=== PATIENT | female | born 1935 | race Caucasian/White ===

== ENCOUNTER 2017-02-06 16:40 | Inpatient (IN) | payer OTHER, MEDICAID ==
[~2017-02-06] VITALS: Ht 160 cm; Wt 45.8 kg
[~2017-02-06 16:40] MED LIST: AMLO-218; BENA20TA48; CLON-230; CLOP75TA19; GLIP5TAB13; GLYB5TAB3; METF500T4; METO100T13; SIMV20TA2; VALS1TAB61
--- NOTE | 2017-02-06 17:11 | ERA ---
ER Documentation Chief Complaint Date/Time DATE: 02/06/17 TIME: 17:11 Chief Complaint BIB DAUGHTER C/O FEVER THAT STARTED TODAY. HPI The patient is a 81-year-old female, presenting to the ER because of fever, vomiting, decreased appetite, not drinking fluids for 1 day. The history is obtained from the daughter. He denies chest pain, dyspnea, complaints of diffuse abdominal pain. She does not smoke or drink Past medical history: Hypertension, dyslipidemia, diabetes mellitus, chronic kidney disease Past surgical history: Left foot amputation ROS All systems reviewed and are negative except as per history of present illness. Medications Home Meds Reported Medications Spironolactone* (Aldactone*) 25 Mg Tablet, 25 MG PO BID, #60 TAB 02/06/17 Metoprolol Tartrate* (Lopressor*) 25 Mg Tab, 25 MG PO BID, #60 TAB 02/06/17 Irbesartan* (Irbesartan*) 300 Mg Tablet, 300 MG PO DAILY, TAB 02/06/17 Isosorbide Mononitrate* (Isosorbide Mononitrate*) 30 Mg Tab.er.24h, 30 MG PO DAILY, TAB 02/06/17 Aspirin* (Aspirin* EC) 81 Mg Tablet.dr, 81 MG PO DAILY, TAB 02/06/17 Simvastatin* (Zocor*) 40 Mg Tablet, 40 MG PO QHS, #30 TAB 02/06/17 Furosemide* (Furosemide*) 80 Mg Tablet, 80 MG PO BID, #60 TAB 02/06/17 Allopurinol* (Allopurinol*) 100 Mg Tablet, 100 MG PO DAILY, TAB 02/06/17 Nifedipine* (Nifedipine ER*) 60 Mg Tablet.sa, 60 MG PO DAILY, TAB.SA 02/06/17 Discontinued Reported Medications Simvastatin (Simvastatin) 20 Mg Tablet 02/27/10 Benazepril Hcl* (Benazepril Hcl*) 20 Mg Tablet 02/27/10 Glyburide* (Glyburide*) 5 Mg Tablet 02/27/10 Glipizide* (Glipizide*) 5 Mg Tablet 02/27/10 Amlodipine Besylate* (Norvasc*) 10 Mg Tablet 02/27/10 Metformin* (Glucophage*) 500 Mg Tab 10/27/09 Clopidogrel Bisulfate (Plavix) 75 Mg Tablet 10/27/09 Metoprolol Succinate* (Toprol XL*) 100 Mg Tab.sr.24h 10/27/09 Clonidine Hcl (Clonidine Hcl) 0.1 Mg Tablet 10/27/09 Valsartan-Hydrochlorothiazide (Diovan HCT) 1 Tab Tablet 10/27/09 Allergies Allergies: Coded Allergies: No Known Drug Allergies (Verified Allergy, Unknown, 02/06/17) PMhx/Soc History of Surgery: Yes (L ANKLE DISARTICULATION, CATARACT) Anesthesia Reaction: No Hx Neurological Disorder: No Hx Respiratory Disorders: No Hx Cardiac Disorders: No Hx Psychiatric Problems: No Hx Miscellaneous Medical Probl: Yes (HTN, DM) Hx Alcohol Use: No Hx Substance Use: No Hx Tobacco Use: No Smoking Status: Never smoker Physical Exam Vitals Vital Signs Date Time Temp Pulse Resp B/P Pulse Ox O2 Delivery O2 Flow Rate FiO2 02/06/17 20:35 60 18 130/46 98 Room Air 02/06/17 17:32 0 02/06/17 16:41 102.0 89 20 136/59 98 Physical Exam Const: No acute distress. Dehydrated Head: Atraumatic. Eyes: Normal Conjunctiva. ENT: Normal External Ears, Nose and Mouth. Neck: Full range of motion. No meningismus. Resp: Clear to auscultation bilaterally. Cardio: Regular rate and rhythm. Abd: Soft, non distended, normal bowel sounds, diffuse and moderate abdominal tenderness, no rigidity, rebound, CVA tenderness Skin: No petechiae or rashes. Back: No midline or flank tenderness. Ext: No cyanosis, or edema. Neur: Awake and alert. No focal deficit Psych: Normal Mood and Affect. Result Diagram: 02/06/17172902/06/171729 Results 24 hrs Laboratory Tests Test 02/06/17 17:30 02/06/17 17:34 02/06/17 18:08 02/06/17 18:31 White Blood Count 11.710^3/ul Red Blood Count 2.6310^6/ul Hemoglobin 8.0g/dl Hematocrit 24.1% Mean Corpuscular Volume 91.6fl Mean Corpuscular Hemoglobin 30.4pg Mean Corpuscular Hemoglobin Concent 33.2g/dl Red Cell Distribution Width 13.5% Platelet Count 84817^3/UL Mean Platelet Volume 12.0fl Neutrophils % 89.7% Lymphocytes % 2.1% Monocytes % 6.9% Eosinophils % 0.1% Basophils % 0.3% Nucleated Red Blood Cells % 0.0/100WBC Neutrophils # 10.510^3/ul Lymphocytes # 0.210^3/ul Monocytes # 0.810^3/ul Eosinophils # 0.010^3/ul Basophils # 0.010^3/ul Nucleated Red Blood Cells # 0.010^3/ul Prothrombin Time 13.7Sec Prothrombin Time Ratio 1.1 INR International Normalized Ratio 1.05 Activated Partial Thromboplast Time 28.7Sec Sodium Level 132mmol/L Potassium Level 4.9mmol/L Chloride Level 102mmol/L Carbon Dioxide Level 20mmol/L Anion Gap 15 Blood Urea Nitrogen 54mg/dl Creatinine 3.04mg/dl Glucose Level 177mg/dl Calcium Level 8.9mg/dl Total Bilirubin 0.3mg/dl Direct Bilirubin 0.00mg/dl Indirect Bilirubin 0.3mg/dl Aspartate Amino Transf (AST/SGOT) 15IU/L Alanine Aminotransferase (ALT/SGPT) 22IU/L Alkaline Phosphatase 134IU/L Troponin I 0.014ng/ml Total Protein 6.5g/dl Albumin 4.1g/dl Globulin 2.40g/dl Albumin/Globulin Ratio 1.70 Lactic Acid Level 1.5mmol/L Bedside Glucose 184mg/dL Urine Color YELLOW Urine Clarity CLOUDY Urine pH Urine Specific [place] Urine Ketones NEGATIVE Urine Nitrite NEGATIVE Urine Bilirubin NEGATIVE Urine Urobilinogen 0.2 E.U./dL Urine Leukocyte Esterase 2+ Urine Microscopic RBC 5-10/HPF Urine Microscopic WBC >200/HPF Urine Squamous Epithelial Cells FEW/HPF Urine Bacteria MANY/HPF Urine Hemoglobin 2+ Urine Glucose NEGATIVE% Urine Total Protein TRACE Current Medications Medications (Trade) Dose Ordered Sig/Mitch Route PRN Reason Start Time Stop Time Status Last Admin Dose Admin Acetaminophen 650 mg 650 mg ONCE ONCE PO 02/06/17 17:30 02/06/17 17:31 DC 02/06/17 18:09 Ceftriaxone Sodium (Rocephin) 50 ml @ 100 mls/hr ONCE ONCE IVPB 02/06/17 19:30 02/06/17 19:59 DC 02/06/17 19:50 Procedures/MDM [place] [id number] Radiology Main Line: [phone] DIAGNOSTIC IMAGING REPORT Patient: CHRYSTAL HANNON : 1935 Age: 81 Sex: F MR #: [id number] DOS: 02/06/171710 Ordering MD: SONG KWOK MD Location: E/R Room/Bed: PROCEDURE: XR Chest. CLINICAL INDICATION: Shortness of breath. TECHNIQUE: Single frontal view. COMPARISON: 03/04/2010. FINDINGS: The lungs are clear. The heart size is normal. There is calcification in the aorta consistent with atherosclerosis. There is no pleural effusion. There is no pneumothorax. IMPRESSION: 1. Atherosclerosis. 2. Clear lungs. RPTAT: QQ .Nima Nguyễn MD, Date Time Electronically viewed and signed by .Nima Nguyễn MD, MD on 02/06/2017 18:33 .R/ CC: SONG KWOK MD [place] [id number] Radiology Main Line: [phone] DIAGNOSTIC IMAGING REPORT Patient: CHRYSTAL HANNON : 1935 Age: 81 Sex: F MR #: [id number] DOS: 02/06/171710 Ordering MD: SONG KWOK MD Location: E/R Room/Bed: PROCEDURE: CT Abdomen and Pelvis without contrast. CLINICAL INDICATION: Sepsis TECHNIQUE: CT scan of the abdomen and pelvis was performed on a multidetector slice CT scanner. No intravenous contrast material was utilized. Sagittal and coronal reformatted images were obtained from the axial source images. Images were reviewed on a high-resolution PACS workstation. Exam CTDlvol = 9.5 mGy and DLP = 489 Gy-cm. One of the following 3 dose reduction techniques were used: Automated exposure control; adjustment of the mA and/or kV according to patient size; or use of iterative reconstruction technique. COMPARISON: None. FINDINGS: There is no obstruction or ileus. The appendix is well visualized and normal in size. There are few sigmoid colon diverticuli without evidence for diverticulitis. There is no free fluid. There are left inguinal surgical clips. The liver is overall normal in size. There are multiple punctate and peripherally calcified intrahepatic masses, largest in the posterior segment right lobe 1.7 cm diameter. There are numerous noncalcified hypodense lesions throughout the liver, largest in the left lobe of 1.2 cm in diameter. There is gallbladder wall calcification versus large rounded calcified gallstones up to 3.2 cm in diameter. Gallbladder is otherwise unremarkable.. There is no definite biliary ductal dilation. Pancreas is normal in appearance. The spleen is unremarkable.. There are no adrenal masses. The aorta is normal caliber. There are diffuse vascular calcifications. There is 1.6 cm probable cyst lower pole of the right kidney. Kidneys are otherwise normal in appearance without hydronephrosis, mass or obstructing calculus. There is no perinephric collection. Ureters are of normal caliber and without evidence for an obstructing calculus. The urinary bladder is partially contracted with diffuse wall thickening... Multiple uterine probable vascular calcifications are present. Ovaries are not well characterized. Limited evaluation of the lung bases demonstrates an 8 mm noncalcified nodular density left lung base with adjacent atelectasis or scarring.. There are degenerative changes of the lower lumbar spine.. IMPRESSION: 1. Innumerable calcified and noncalcified intrahepatic lesions. Larger calcified lesions are peripherally calcified. Considerations include neoplasm versus infection includingHydatid cysts. 2. Marked peripherally calcified gallstone versus calcified gallbladder wall. 3. No evidence for biliary obstruction. 4. Extensive diffuse vascular calcifications. 5. Few sigmoid colon diverticuli without evidence for diverticulitis. 6. Probable right renal cyst. No obstructive uropathy. Partially contracted gallbladder with nonspecific wall thickening. 7. Noncalcified left lower lobe lung nodule and adjacent atelectasis. 8. Degenerative changes of the lumbar spine. RPTAT: HMVK .Song Driscoll MD, Date Time Electronically viewed and signed by .Song Driscoll MD, on 02/06/2017 18:42 .K/ CC: SONG KWOK MD MEDICAL MAKING DECISION: The patient is of 80-year-old female, presenting with acute dehydration, acute cystitis and acute hepatic lesion of unclear etiology. She was treated 500 ml normal saline and Rocephin IV for acute cystitis and Tylenol for fever with good response The differential diagnoses considered include but are not limited to cholelithiasis, cholecystitis, cystitis, pancreatitis, hepatitis, gastritis, peptic ulcer disease, gastric ulcer, appendicitis, diverticulitis, cholangitis, choledocholithiasis, partial small bowel obstruction, malignancy. Departure Diagnosis: Primary Impression: UTI (urinary tract infection) Additional Impressions: Dehydration Hepatic lesion Anemia Condition: Stable Comments I discussed the findings with the patient. I discussed the patient with the on- call hospitalist Dr. Ware at 7 PM who was made aware of the lab, the treatment, the patient condition. The patient is admitted to [facility] SONG KWOK MD Feb 06, 2017 17:11
[2017-02-06] MEDS ORDERED: ACETAMINOPHEN 325 MG TAB PO ONE (17:30)
[2017-02-06] MEDS ORDERED: NIFE60TA7 PO (17:43)
[2017-02-06] MEDS ORDERED: ALLO100T PO (17:44)
[2017-02-06] MEDS ORDERED: FURO80TA3 PO (17:44)
[2017-02-06] MEDS ORDERED: SIMV40TA2 PO (17:45)
[2017-02-06] MEDS ORDERED: ASPI-664 PO (17:45)
[2017-02-06] MEDS ORDERED: ISOS30TA5 PO (17:45)
[2017-02-06] MEDS ORDERED: METO-448 PO (17:46)
[2017-02-06] MEDS ORDERED: IRBE300T15 PO (17:46)
[2017-02-06] MEDS ORDERED: SPIR25TA PO (17:48)
[2017-02-06 17:57] LABS: ADD SCAN DIFF NO
[2017-02-06 18:01] LABS: ABNORMAL IP MESSAGE 1; BASOPHILS % 0.3 % (0.0-2.0); EOSINOPHILS % 0.1 % (0.0-7.0); HEMATOCRIT 24.1 % (37.0-47.0); LYMPHOCYTES # 0.2 10^3/ul (0.8-2.9); LYMPHOCYTES % 2.1 % (15.0-51.0); MEAN CORPUSCULAR HEMOGLOBIN 30.4 pg (29.0-33.0); MEAN CORPUSCULAR HGB CONC 33.2 g/dl (32.0-37.0); MEAN CORPUSCULAR VOLUME 91.6 fl (82.0-101.0); MONOCYTE # 0.8 10^3/ul (0.3-0.9); MONOCYTES % 6.9 % (0.0-11.0); NEUTROPHIL # 10.5 10^3/ul (1.6-7.5); NEUTROPHILS % 89.7 % (39.0-77.0); PLATELET COUNT 153 10^3/UL (140-415); RED BLOOD COUNT 2.63 10^6/ul (4.20-5.40); RED CELL DISTRIBUTION WIDTH 13.5 % (11.5-14.5); WHITE BLOOD COUNT 11.7 10^3/ul (4.8-10.8)
[2017-02-06 18:12] LABS: INR 1.05; PROTIME 13.7 Sec (12.2-14.2); PT RATIO 1.1
[2017-02-06 18:13] LABS: PARTIAL THROMBOPLASTIN TIME 28.7 Sec (25.0-35.0)
[2017-02-06 18:26] LABS: ALBUMIN 4.1 g/dl (3.3-4.9); ALBUMIN/GLOBULIN RATIO 1.7; BILIRUBIN,INDIRECT 0.3 mg/dl (0-1.1); BILIRUBIN,TOTAL 0.3 mg/dl (0.2-1.3); CALCIUM 8.9 mg/dl (8.4-10.2); CREATININE 3.04 mg/dl (0.44-1.00); POTASSIUM 4.9 mmol/L (3.5-5.1); TOTAL PROTEIN 6.5 g/dl (6.1-8.1)
--- NOTE | 2017-02-06 18:33 | RADRPT ---
PROCEDURE: XR Chest. CLINICAL INDICATION: Shortness of breath. TECHNIQUE: Single frontal view. COMPARISON: 03/04/2010. FINDINGS: The lungs are clear. The heart size is normal. There is calcification in the aorta consistent with atherosclerosis. There is no pleural effusion. There is no pneumothorax. IMPRESSION: 1. Atherosclerosis. 2. Clear lungs. RPTAT: QQ .Nima Nguyễn MD, MD Date Time Electronically viewed and signed by .Nima Nguyễn MD, on 02/06/2017 18:33 .R/
[2017-02-06 18:36] LABS: TROPONIN-I 0.014 ng/ml (0.00-0.12)
--- NOTE | 2017-02-06 18:43 | RADRPT ---
PROCEDURE: CT Abdomen and Pelvis without contrast. CLINICAL INDICATION: Sepsis TECHNIQUE: CT scan of the abdomen and pelvis was performed on a multidetector slice CT scanner. No intravenous contrast material was utilized. Sagittal and coronal reformatted images were obtained fr om the axial source images. Images were reviewed on a high-resolution PACS workstation. Exam CTDlvol = 9.5 mGy and DLP = 489 Gy-cm. One of the following 3 dose reduction techniques were used: Automate d exposure control; adjustment of the mA and/or kV according to patient size; or use of iterative re construction technique. COMPARISON: None. FINDINGS: There is no obstruction or ileus. The appendix is well visualized and normal in size. There are few sigmoid colon diverticuli without evidence for diverticulitis. There is no free fluid. There are le ft inguinal surgical clips. The liver is overall normal in size. There are multiple punctate and peripherally calcified intrahep atic masses, largest in the posterior segment right lobe 1.7 cm diameter. There are numerous noncal cified hypodense lesions throughout the liver, largest in the left lobe of 1.2 cm in diameter. Ther e is gallbladder wall calcification versus large rounded calcified gallstones up to 3.2 cm in diamet er. Gallbladder is otherwise unremarkable.. There is no definite biliary ductal dilation. Pancreas is normal in appearance. The spleen is unremarkable.. There are no adrenal masses. The aorta is norm al caliber. There are diffuse vascular calcifications. There is 1.6 cm probable cyst lower pole of the right kidney. Kidneys are otherwise normal in appea jero without hydronephrosis, mass or obstructing calculus. There is no perinephric collection. Uret ers are of normal caliber and without evidence for an obstructing calculus. The urinary bladder is partially contracted with diffuse wall thickening... Multiple uterine probable vascular calcifications are present. Ovaries are not well characterized. Limited evaluation of the lung bases demonstrates an 8 mm noncalcified nodular density left lung bas e with adjacent atelectasis or scarring.. There are degenerative changes of the lower lumbar spine.. IMPRESSION: 1. Innumerable calcified and noncalcified intrahepatic lesions. Larger calcified lesions are perip herally calcified. Considerations include neoplasm versus infection includingHydatid cysts. 2. Marked peripherally calcified gallstone versus calcified gallbladder wall. 3. No evidence for biliary obstruction. 4. Extensive diffuse vascular calcifications. 5. Few sigmoid colon diverticuli without evidence for diverticulitis. 6. Probable right renal cyst. No obstructive uropathy. Partially contracted gallbladder with nons pecific wall thickening. 7. Noncalcified left lower lobe lung nodule and adjacent atelectasis. 8. Degenerative changes of the lumbar spine. RPTAT: HMVK .Song Driscoll MD, Date Time Electronically viewed and signed by .Song Driscoll MD, on 02/06/2017 18:42 .K/
[2017-02-06 18:49] LABS: ADD UMIC YES; UR BILIRUBIN (Dip) NEGATIVE (NEGATIVE); UR BLOOD (Dip) 2+ (NEGATIVE); UR CLARITY CLOUDY (CLEAR); UR COLOR YELLOW (YELLOW); UR GLUCOSE (Dip) NEGATIVE (NEGATIVE); UR KETONES (Dip) NEGATIVE (NEGATIVE); UR LEUKOCYTE ESTERASE (Dip) 2+ (NEGATIVE); UR NITRITE (Dip) NEGATIVE (NEGATIVE); UR TOTAL PROTEIN (Dip) TRACE (NEGATIVE); UR UROBILINOGEN (Dip) 0.2 E.U./dL (0.1-1.0)
[2017-02-06 19:05] LABS: UR BACTERIA MANY /HPF (NONE SEEN); UR SQUAMOUS EPITHELIAL CELL FEW /HPF (FEW)
[2017-02-06] MEDS ORDERED: CEFTRIAXONE 1 GM/50 ML (PMX) 50 ML IVPB ONE (19:30)
[2017-02-06] MEDS ORDERED: SOD CHLORIDE 0.9% 500 ML IV ONE (21:00)
[2017-02-06 22:35] VITALS: BP 129/63; RESP 18
[2017-02-06 22:40] VITALS: Ht 160 cm; Wt 45.8 kg
[2017-02-07] MEDS ORDERED: ACETAMINOPHEN 325 MG TAB PO PRN (01:00)
[2017-02-07] MEDS ORDERED: NACL 0.9% 3 ML SYG IV SCH (01:00)
[2017-02-07] MEDS ORDERED: morphine 2 MG INJ IV PRN (01:00)
[2017-02-07] MEDS ORDERED: HYDROCODONE/APAP (5/325) TAB PO PRN (01:00)
[2017-02-07] MEDS ORDERED: DOCUSATE SODIUM 100 MG CAP PO PRN (01:00)
[2017-02-07] MEDS ORDERED: ZOLPIDEM 5 MG TAB PO PRN (01:00)
[2017-02-07] MEDS ORDERED: ONDANSETRON 4 MG INJ IV PRN (01:00)
[2017-02-07] MEDS ORDERED: GLUCAGON 1 MG INJ IM PRN (01:15)
[2017-02-07] MEDS ORDERED: GLUCOSE GEL 15 GRAM TUBE PO PRN ×2 (01:15)
[2017-02-07] MEDS ORDERED: DEXTROSE 50% 50 ML SYRINGE IV PRN ×2 (01:15)
[2017-02-07] MEDS ORDERED: GLUCOSE GEL 15 GRAM TUBE BUCCAL PRN (01:15)
[2017-02-07] MEDS: ACCU-CHEK XX SCH (02:00)
[2017-02-07] MEDS: SOD CHLORIDE 0.9% 1,000 ML IV SCH ×4 (02:40→22:00)
--- NOTE | 2017-02-07 03:23 | HP ---
DATE OF ADMISSION: 02/06/2017 TIME: 11:45 p.m. CHIEF COMPLAINT: Confusion, weakness, nausea, vomiting. HISTORY OF PRESENT ILLNESS: The patient is an 81-year-old female with a history of hypertension, dy slipidemia, diabetes, CKD as well as left foot amputation. The patient presents with fever, vomitin g, decreased appetite, not drinking fluids for a day, vomiting only occurred today. History is obta ined from daughter. According to granddaughter, the patient has no history of dementia. The patien t is not very conversational. The patient denies any dysuria, any urinary frequency. In the ED, th e patient's UA was positive for UTI. PAST MEDICAL HISTORY: As per HPI. MEDICATIONS: 1. Aldactone 2. Metoprolol. 3. Imdur. 4. Aspirin. 5. Simvastatin. 6. Furosemide. 7. Allopurinol. 8. Nifedipine. ALLERGIES: NO KNOWN DRUG ALLERGIES. FAMILY HISTORY: Noncontributory. SOCIAL HISTORY: Denies any alcohol, tobacco or drugs. REVIEW OF SYSTEMS: Twelve point review of systems difficult to obtain as the patient has poor menta tion. PHYSICAL EXAMINATION: VITAL SIGNS: Temperature is 97.9, pulse 58, respiration is 18, BP is 129/63, saturation 99% on room air. GENERAL: No acute distress, alert, but does not appear oriented. HEENT: Normocephalic, atraumatic. CHEST: Clear to auscultation. CARDIOVASCULAR: Regular rate and rhythm. ABDOMEN: Nondistended, nontender, soft. EXTREMITIES: No clubbing, cyanosis, or edema. Left foot amputation appreciated. LABORATORY DATA: White count is 11.7, hemoglobin is 8.0, platelets are 153. Chemistry: Sodium is 132, potassium is 4.9, carbon dioxide is 20, BUN is 54, creatinine is 3.04, lactic acid is 1.5, bonnie line phosphatase is 134. INR is normal at 1.0. UA is positive for leukocyte esterase 2+, WBCs grea ter than 200. DIAGNOSTICS: Chest x-ray shows atherosclerosis, clear lungs. Abdominal pelvis CT shows intrahepati c lesions, calcified gallstone versus calcified gallbladder wall, no evidence of biliary obstruction , extensive diffuse vascular calcifications, right renal cyst, degenerative changes of the spine. ASSESSMENT AND PLAN: 1. Sepsis with acute encephalopathy secondary to urinary tract infection, treated with Rocephin IV, will check a urine culture. 2. Numerable calcified intrahepatic lesions and this could be ____, will check an AFP. 3. Hypertension. Will continue home medications. 4. Diabetes. Continue home insulin. 5. Acute on chronic kidney disease. The patient's creatinine is elevated compared to baseline, lik kristin secondary to sepsis, will treat with IV fluids. Consider nephrology consultation. 6. Hyponatremia likely secondary to dehydration from nausea and vomiting, will treat with IV fluids . 8. Prophylaxis. SCDs. Dictated By: DONALD WOMACK MD BS/NTS Conf#: [id number] DID#: [id number]
[2017-02-07 06:19] LABS: ADD SCAN DIFF NO
[2017-02-07 06:27] LABS: BASOPHILS % 0.3 % (0.0-2.0); EOSINOPHILS % 0.3 % (0.0-7.0); HEMATOCRIT 26.2 % (37.0-47.0); HEMOGLOBIN 8.3 g/dl (12.0-16.0); LYMPHOCYTES # 0.9 10^3/ul (0.8-2.9); LYMPHOCYTES % 7.1 % (15.0-51.0); MEAN CORPUSCULAR HEMOGLOBIN 29.5 pg (29.0-33.0); MEAN CORPUSCULAR HGB CONC 31.7 g/dl (32.0-37.0); MEAN CORPUSCULAR VOLUME 93.2 fl (82.0-101.0); MEAN PLATELET VOLUME 12.7 fl (7.4-10.4); MONOCYTE # 0.5 10^3/ul (0.3-0.9); MONOCYTES % 4.4 % (0.0-11.0); NEUTROPHIL # 10.5 10^3/ul (1.6-7.5); NEUTROPHILS % 87.3 % (39.0-77.0); PLATELET COUNT 163 10^3/UL (140-415); RED BLOOD COUNT 2.81 10^6/ul (4.20-5.40); RED CELL DISTRIBUTION WIDTH 13.4 % (11.5-14.5)
[2017-02-07 06:57] LABS: CALCIUM 9.1 mg/dl (8.4-10.2); CREATININE 2.65 mg/dl (0.44-1.00); MAGNESIUM 2.1 mg/dl (1.7-2.5); POTASSIUM 4.6 mmol/L (3.5-5.1)
[2017-02-07 08:00] VITALS: BP 190/78; RESP 18
[2017-02-07] MEDS: INSULIN ASPART [NOVOLOG] 3 ML PEN SC SCH ×4 (08:00→20:19)
[2017-02-07 09:30] VITALS: BP 160/70
[2017-02-07] MEDS: ASPIRIN (EC) 81 MG TAB PO SCH (09:37)
[2017-02-07] MEDS: MEGESTROL (40 MG/ML) 10ML CUP PO SCH (20:13)
[2017-02-07] MEDS: CEFTRIAXONE 1 GM/50 ML (PMX) 50 ML IVPB SCH (20:13)
[2017-02-07 22:11] VITALS: BP 157/67
[2017-02-07 22:49] VITALS: BP 157/68; RESP 16
[2017-02-08] VITALS (9 sets, daily range): BP systolic 121–207; BP diastolic 69–87; PULSE 59–84; RESP 16–18
[2017-02-08] MEDS: ACCU-CHEK XX SCH (02:00)
[2017-02-08] MEDS: SOD CHLORIDE 0.9% 1,000 ML IV SCH ×2 (05:47→17:22)
[2017-02-08] MEDS: hydrALAzine 20 MG INJ IV PRN ×2 (05:54→20:22)
[2017-02-08] MEDS: INSULIN ASPART [NOVOLOG] 3 ML PEN SC SCH ×4 (08:00→21:00)
[2017-02-08] MEDS: ASPIRIN (EC) 81 MG TAB PO SCH (08:09)
[2017-02-08] MEDS: MEGESTROL (40 MG/ML) 10ML CUP PO SCH ×2 (08:09→20:21)
--- NOTE | 2017-02-08 15:19 | PN ---
DATE: 02/08/2017 SUBJECTIVE: This is an internal medicine progress note, chart reviewed. The patient currently ledy marcelino in bed comfortable. Mental status is now back to normal. She is on room air saturating 96%. PHYSICAL EXAMINATION: VITAL SIGNS: Blood pressure 150/72, pulse 84, respiration 18, temperature 98.6. HEENT: Pupils are equal and reactive to light. Anicteric sclerae. NECK: Supple, no JVD noted, no cervical adenopathy, no carotid bruits heard. LUNGS: Fair breath sounds bilaterally. CARDIOVASCULAR: S1, S2 normal. ABDOMEN: Soft, nontender. No organomegaly or masses noted. EXTREMITIES: No clubbing, cyanosis, or edema noted. NEUROLOGICAL: Awake. LABORATORY DATA: No new labs today. IMPRESSION: 1. Sepsis. 2. Urinary tract infection. Urine culture now positive for Escherichia coli sensitive to all antib iotics. 3. Acute encephalopathy, likely secondary to sepsis, but now resolved. 4. Diabetes mellitus. 5. Hypertension. 6. Acute on chronic kidney disease. 7. Mild hyponatremia. RECOMMENDATIONS: 1. Continue IV antibiotics. 2. Follow up labs tomorrow. 3. If patient is stable, the patient can be discharged on oral antibiotics home tomorrow under care of her daughter. I discussed the above plans with family at bedside. Dictated By: YANDY LEWIS MD, MA/JOAQUINA Conf#: [id number] DID#: [id number]
[2017-02-08] MEDS: CEFTRIAXONE 1 GM/50 ML (PMX) 50 ML IVPB SCH (19:50)
[2017-02-09] MEDS: ACCU-CHEK XX SCH (02:00)
[2017-02-09] MEDS: SOD CHLORIDE 0.9% 1,000 ML IV SCH ×3 (02:56→22:03)
[2017-02-09] MEDS: hydrALAzine 20 MG INJ IV PRN (05:07)
[2017-02-09 06:22] VITALS: BP 168/72; PULSE 62
[2017-02-09 06:56] LABS: ADD SCAN DIFF NO
[2017-02-09 07:07] LABS: BASOPHILS % 0.3 % (0.0-2.0); EOSINOPHILS # 0.2 10^3/ul (0.0-0.5); HEMATOCRIT 24.7 % (37.0-47.0); HEMOGLOBIN 7.7 g/dl (12.0-16.0); LYMPHOCYTES # 1.2 10^3/ul (0.8-2.9); LYMPHOCYTES % 15.7 % (15.0-51.0); MEAN CORPUSCULAR HEMOGLOBIN 29.4 pg (29.0-33.0); MEAN CORPUSCULAR HGB CONC 31.2 g/dl (32.0-37.0); MEAN CORPUSCULAR VOLUME 94.3 fl (82.0-101.0); MEAN PLATELET VOLUME 12.6 fl (7.4-10.4); MONOCYTE # 0.7 10^3/ul (0.3-0.9); MONOCYTES % 8.8 % (0.0-11.0); NEUTROPHIL # 5.5 10^3/ul (1.6-7.5); NEUTROPHILS % 72.4 % (39.0-77.0); PLATELET COUNT 175 10^3/UL (140-415); RED BLOOD COUNT 2.62 10^6/ul (4.20-5.40); RED CELL DISTRIBUTION WIDTH 13.9 % (11.5-14.5); WHITE BLOOD COUNT 7.5 10^3/ul (4.8-10.8)
[2017-02-09] MEDS: FUROSEMIDE 40 MG TAB PO SCH ×2 (07:10→17:35)
[2017-02-09 07:38] LABS: CALCIUM 7.9 mg/dl (8.4-10.2); CREATININE 1.44 mg/dl (0.44-1.00); POTASSIUM 4.1 mmol/L (3.5-5.1)
[2017-02-09 08:00] VITALS: BP 162/74; RESP 18
[2017-02-09] MEDS: INSULIN ASPART [NOVOLOG] 3 ML PEN SC SCH ×4 (08:00→20:59)
[2017-02-09] MEDS ORDERED: NIFEdipine (XL) 60 MG TAB PO SCH (09:00)
[2017-02-09] MEDS ORDERED: ISOSORBIDE MONONITRATE(SR)30 MG TAB PO SCH (09:00)
[2017-02-09] MEDS: ALLOPURINOL 100 MG TAB PO SCH (10:15)
[2017-02-09] MEDS: LOSARTAN 50 MG TAB PO SCH (10:15)
[2017-02-09] MEDS: METOPROLOL 25 MG TAB PO SCH ×2 (10:16→20:56)
[2017-02-09] MEDS: ASPIRIN (EC) 81 MG TAB PO SCH (10:16)
[2017-02-09] MEDS: SPIRONOLACTONE 25 MG TAB PO SCH ×2 (10:16→20:56)
[2017-02-09] MEDS: MEGESTROL (40 MG/ML) 10ML CUP PO SCH ×2 (10:16→20:56)
--- NOTE | 2017-02-09 14:26 | PN ---
DATE: 02/09/2017 INTERNAL MEDICINE FOLLOWUP SUBJECTIVE: Chart reviewed. The patient does not appear in acute distress, saturating 96%. PHYSICAL EXAMINATION: VITAL SIGNS: Blood pressure 162/74, pulse 62, respirations 18, temperature 98.6. HEENT: Pupils are equal and reactive to light. NECK: Supple. No JVD noted, no cervical adenopathy noted, no carotid bruits heard. LUNGS: Fair breath sounds bilaterally. CARDIOVASCULAR: S1, S2 normal. ABDOMEN: Soft, nontender. No organomegaly or masses noted. EXTREMITIES: No clubbing or cyanosis noted. NEUROLOGICAL: Awake. LABORATORY: Sodium 141, potassium 4.1, chloride 117, CO2 19, BUN 26, creatinine 1.44, glucose 69. WBC 7.5, hemoglobin 7.7, hematocrit 24.7, platelets 175. IMPRESSION: 1. Sepsis. 2. Urinary tract infection. 3. Acute encephalopathy. Resolved. 4. Diabetes mellitus. 5. Hypertension. 6. Acute renal failure on chronic kidney disease. Significantly improved. PLAN: 1. Continue antibiotics. 2. Follow up labs tomorrow. If the patient's creatinine is back to baseline, the patient can be di scharged home on oral antibiotics. Dictated By: YANDY LEWIS MD, MA/JOAQUINA Conf#: [id number] DID#: [id number]
[2017-02-09 20:00] VITALS: BP 114/54; RESP 20
[2017-02-09] MEDS: ATORVASTATIN 20 MG TAB PO SCH (20:56)
[2017-02-09] MEDS: CEFTRIAXONE 1 GM/50 ML (PMX) 50 ML IVPB SCH (20:56)
[2017-02-10] MEDS: ACCU-CHEK XX SCH (02:00)
[2017-02-10] MEDS: FUROSEMIDE 40 MG TAB PO SCH (05:42)
[2017-02-10 06:07] LABS: ADD SCAN DIFF NO
[2017-02-10 06:42] LABS: ALBUMIN 2.4 g/dl (3.3-4.9); ALBUMIN/GLOBULIN RATIO 1.04; CALCIUM 7.9 mg/dl (8.4-10.2); CREATININE 1.75 mg/dl (0.44-1.00); TOTAL PROTEIN 4.7 g/dl (6.1-8.1)
[2017-02-10 08:00] VITALS: BP 123/56; PULSE 60; RESP 16
[2017-02-10] MEDS: INSULIN ASPART [NOVOLOG] 3 ML PEN SC SCH ×4 (08:00→21:22)
[2017-02-10] MEDS: SOD CHLORIDE 0.9% 1,000 ML IV SCH ×3 (08:16→22:16)
[2017-02-10] MEDS ORDERED: LACTATED RINGER'S 500 ML IV ONE (09:00)
--- NOTE | 2017-02-10 09:08 | PN ---
Date/Time of Note Date/Time of Note DATE: 02/10/17 TIME: 09:03 Assessment/Plan VTE Prophylaxis VTE Prophylaxis Intervention: heparin Lines/Catheters IV Catheter Type (from [facility]): Peripheral IV Urinary Cath still in place: No Assessment/Plan Problems: (1) Chronic kidney disease, stage II (mild) Status: Chronic Comment: Patient's renal function has were not returned to baseline. She is already on an H2 receptor hans drug and beta-blockade. I believe she is actually somewhat over diuresed. This is to compensate for the fluid retention effects of the nifedipine. Will adjust the regimen around (2) Status post amputation of left foot Status: Chronic Comment: Noted no action necessary (3) E. coli UTI Status: Acute Comment: On appropriate antibiotics. Probable able to best discharge tomorrow (4) Sepsis due to Escherichia coli (E. coli) Status: Resolved Comment: Patient symptoms sepsis symptoms resolved. Patient is on appropriate antibiotics and improving steadily and nicely. (5) Acute kidney injury (nontraumatic) Status: Acute Comment: This was dehydrational in the setting of sepsis. She is improving nicely. Will adjust medications to try and optimize. (6) Essential hypertension Status: Chronic Comment: Nifedipine is a poor choice in a diabetic in the setting we will replace it. (7) Diabetes mellitus type 2 in nonobese Status: Chronic Comment: Adequate sugar control at this time (8) Hyperlipidemia associated with type 2 diabetes mellitus Status: Chronic Comment: Continue statin therapy (9) Hyperuricemia Status: Chronic Comment: Continue treatment with allopurinol Subjective 24 Hr Interval Summary Free Text/Dictation Elderly female conversant sitting in bed eating breakfast Constitutional: no complaints Respiratory: no complaints Cardiovascular: no complaints Gastrointestinal: no complaints Genitourinary: no complaints Exam/Review of Systems Vital Signs Vitals Vital Signs Date Time Temp Pulse Resp B/P Pulse Ox O2 Delivery O2 Flow Rate FiO2 02/09/17 20:00 98.1 64 20 114/54 95 02/06/17 22:12 Room Air 02/06/17 17:32 0 Intake and Output 02/09/17 02/09/17 02/10/17 15:00 23:00 07:00 Intake Total 1800 ml 570 ml Balance 1800 ml 570 ml Exam Constitutional: alert, oriented Neck: non-tender, supple Respiratory: clear to auscultation, normal air movement Cardiovascular: nl pulses, regular rate and rhythm Gastrointestinal: nl liver, spleen, non-tender, soft Extremities: other (No clubbing cyanosis or edema of the right lower extremity) Results Result Diagram: 02/09/1752002/10/17526 Results 24 hrs Laboratory Tests Test 02/09/17 12:05 02/09/17 17:30 02/09/17 20:58 02/10/17 05:27 Bedside Glucose 108 136 153 Sodium Level 142 Potassium Level 4.0 Chloride Level 117 H Carbon Dioxide Level 17 L Anion Gap 12 Blood Urea Nitrogen 26 H Creatinine 1.75 H Glucose Level 93 Calcium Level 7.9 L Total Bilirubin 0.0 L Direct Bilirubin 0.00 Indirect Bilirubin 0.0 Aspartate Amino Transf (AST/SGOT) 10 L Alanine Aminotransferase (ALT/SGPT) 16 Alkaline Phosphatase 90 Total Protein 4.7 L Albumin 2.4 L Globulin 2.30 Albumin/Globulin Ratio 1.04 Test 02/10/17 07:53 Bedside Glucose 82 Medications Medications Current Medications Sodium Chloride (NS) 1,000 ml @ 100 mls/hr Q10H IV Last administered on 08:16; Admin Dose 100 MLS/HR; Start 02/07/17 at 00:56 Ondansetron HCl (Zofran Inj) 4 mg Q6H PRN IV NAUSEA AND/OR VOMITING; Start at 01:00 Acetaminophen (Tylenol Tab) 650 mg Q6H PRN PO PAIN LEVEL 1-3 OR FEVER; Start at 01:00 Acetaminophen/ Hydrocodone Bitart ([place] (5/325)) 1 tab Q6H PRN PO MODERATE PAIN LEVEL 4-6; Start 02/07/17 at 01:00 Morphine Sulfate (morphine) 2 mg Q4H PRN IV SEVERE PAIN LEVEL 7-10 Last administered on 02/07/17 02:47; Admin Dose 2 MG; Start 02/07/17 at 01:00 Docusate Sodium (Colace) 100 mg Q12H PRN PO CONSTIPATION; Start 02/07/17 at 01: 00 Zolpidem Tartrate 5 mg 5 mg QHS PRN PO SLEEP Last administered on 02/08/17 21: 54; Admin Dose 5 MG; Start 02/07/17 at 01:00 Ceftriaxone Sodium (Rocephin) 50 ml @ 100 mls/hr Q24H IVPB Last administered on 02/09/17 20:56; Admin Dose 100 MLS/HR; Start 02/07/17 at 20:00 Aspirin (Halfprin) 81 mg DAILY PO Last administered on 02/09/17 10:16; Admin Dose 81 MG; Start 02/07/17 at 09:00 Diagnostic Test (Pha) (Accu-Chek) 1 ea 02 XX ; Start 02/07/17 at 02:00 Miscellaneous Information 1 ea NOTE XX ; Start 02/07/17 at 01:15 Glucose (Glutose) 15 gm Q15M PRN PO DECREASED GLUCOSE; Start 02/07/17 at 01:15 Glucose (Glutose) 22.5 gm Q15M PRN PO DECREASED GLUCOSE; Start 02/07/17 at 01: 15 Dextrose (D50w Syringe) 25 ml Q15M PRN IV DECREASED GLUCOSE; Start 02/07/17 at 01:15 Dextrose (D50w Syringe) 50 ml Q15M PRN IV DECREASED GLUCOSE; Start 02/07/17 at 01:15 Glucagon (Glucagen) 1 mg Q15M PRN IM DECREASED GLUCOSE; Start 02/07/17 at 01:15 Glucose (Glutose) 15 gm Q15M PRN BUCCAL DECREASED GLUCOSE; Start 02/07/17 at 01 :15 Hydralazine HCl (Apresoline) 10 mg Q4H PRN IV SBP>160 Last administered on 02/09 05:07; Admin Dose 10 MG; Start 02/07/17 at 16:30 Megestrol Acetate (Megace Susp) 400 mg BID PO Last administered on 02/09/17 20 :56; Admin Dose 400 MG; Start 02/07/17 at 21:00 Allopurinol (Zyloprim) 100 mg DAILY PO Last administered on 02/09/17 10:15; Admin Dose 100 MG; Start 02/09/17 at 09:00 Isosorbide Mononitrate (Imdur) 30 mg DAILY PO Last administered on 02/09/17 10 :14; Admin Dose 30 MG; Start 02/09/17 at 09:00 Metoprolol Tartrate (Lopressor) 25 mg BID PO Last administered on 02/09/17 20: 56; Admin Dose 25 MG; Start 02/09/17 at 09:00 Nifedipine (Procardia Xl) 60 mg DAILY PO Last administered on 02/09/17 10:15; Admin Dose 60 MG; Start 02/09/17 at 09:00 Spironolactone (Aldactone) 25 mg BID PO Last administered on 02/09/17 20:56; Admin Dose 25 MG; Start 02/09/17 at 09:00 Losartan Potassium (Cozaar) 100 mg DAILY PO Last administered on 02/09/17 10: 15; Admin Dose 100 MG; Start 02/09/17 at 09:00 Atorvastatin Calcium (Lipitor) 20 mg DAILY@21 PO Last administered on 20:56; Admin Dose 20 MG; Start 02/09/17 at 21:00 MORRO RAMÍREZ MD Feb 10, 2017 09:08
[2017-02-10] MEDS: ALLOPURINOL 100 MG TAB PO SCH (10:05)
[2017-02-10] MEDS: LOSARTAN 50 MG TAB PO SCH (10:05)
[2017-02-10] MEDS: ASPIRIN (EC) 81 MG TAB PO SCH (10:05)
[2017-02-10] MEDS: MEGESTROL (40 MG/ML) 10ML CUP PO SCH ×2 (10:05→21:24)
[2017-02-10 10:10] LABS: ABNORMAL IP MESSAGE 1; HEMATOCRIT 21.9 % (37.0-47.0); MEAN CORPUSCULAR HEMOGLOBIN 29.3 pg (29.0-33.0); MEAN CORPUSCULAR HGB CONC 31.1 g/dl (32.0-37.0); MEAN CORPUSCULAR VOLUME 94.4 fl (82.0-101.0); MEAN PLATELET VOLUME 12.7 fl (7.4-10.4); PLATELET COUNT 203 10^3/UL (140-415); RED BLOOD COUNT 2.32 10^6/ul (4.20-5.40); RED CELL DISTRIBUTION WIDTH 14.2 % (11.5-14.5); WHITE BLOOD COUNT 7.6 10^3/ul (4.8-10.8)
[2017-02-10] MEDS: ISOSORBIDE MONONITRATE(SR)30 MG TAB PO SCH ×2 (10:10→21:23)
[2017-02-10] MEDS: METOPROLOL 50 MG TAB PO SCH ×2 (10:11→21:23)
[2017-02-10 10:19] LABS: HEMOGLOBIN 6.8 g/dl (12.0-16.0)
[2017-02-10] MEDS ORDERED: LACTATED RINGER'S 500 ML IV SCH (10:30)
[2017-02-10 12:40] LABS: EOSINOPHILS # 0.2 10^3/ul (0.0-0.5); LYMPHOCYTES # 0.8 10^3/ul (0.8-2.9); MONOCYTE # 0.3 10^3/ul (0.3-0.9); NEUTROPHIL # 6.1 10^3/ul (1.6-7.5)
[2017-02-10 20:53] VITALS: BP 122/60; RESP 19
[2017-02-10] MEDS: CEFTRIAXONE 1 GM/50 ML (PMX) 50 ML IVPB SCH (21:22)
[2017-02-10] MEDS: ATORVASTATIN 20 MG TAB PO SCH (21:24)
[2017-02-11] MEDS: ACCU-CHEK XX SCH (02:00)
[2017-02-11 05:43] LABS: ADD SCAN DIFF NO
[2017-02-11 05:50] LABS: BASOPHILS % 0.4 % (0.0-2.0); EOSINOPHILS # 0.3 10^3/ul (0.0-0.5); EOSINOPHILS % 3.2 % (0.0-7.0); HEMATOCRIT 33.4 % (37.0-47.0); HEMOGLOBIN 10.9 g/dl (12.0-16.0); LYMPHOCYTES # 1.2 10^3/ul (0.8-2.9); MEAN CORPUSCULAR HEMOGLOBIN 29.5 pg (29.0-33.0); MEAN CORPUSCULAR HGB CONC 32.6 g/dl (32.0-37.0); MEAN CORPUSCULAR VOLUME 90.3 fl (82.0-101.0); MEAN PLATELET VOLUME 11.5 fl (7.4-10.4); MONOCYTE # 0.7 10^3/ul (0.3-0.9); MONOCYTES % 7.1 % (0.0-11.0); NEUTROPHIL # 6.9 10^3/ul (1.6-7.5); NEUTROPHILS % 75.1 % (39.0-77.0); PLATELET COUNT 221 10^3/UL (140-415); RED CELL DISTRIBUTION WIDTH 13.9 % (11.5-14.5); WHITE BLOOD COUNT 9.2 10^3/ul (4.8-10.8)
[2017-02-11] MEDS ORDERED: FUROSEMIDE 40 MG TAB PO SCH (06:00)
[2017-02-11] MEDS ORDERED: SPIRONOLACTONE 25 MG TAB PO SCH (06:00)
[2017-02-11 06:23] LABS: CREATININE 1.61 mg/dl (0.44-1.00); POTASSIUM 4.3 mmol/L (3.5-5.1)
[2017-02-11 07:58] VITALS: BP 189/81; RESP 17
[2017-02-11] MEDS: INSULIN ASPART [NOVOLOG] 3 ML PEN SC SCH ×2 (08:00→12:00)
[2017-02-11] MEDS: METOPROLOL 50 MG TAB PO SCH (09:00)
[2017-02-11 09:12] VITALS: BP 175/72; PULSE 58; RESP 18
[2017-02-11] MEDS: ISOSORBIDE MONONITRATE(SR)30 MG TAB PO SCH (09:13)
[2017-02-11] MEDS: ASPIRIN (EC) 81 MG TAB PO SCH (09:13)
[2017-02-11] MEDS: MEGESTROL (40 MG/ML) 10ML CUP PO SCH (09:13)
[2017-02-11] MEDS: ALLOPURINOL 100 MG TAB PO SCH (09:14)
[2017-02-11] MEDS: LOSARTAN 50 MG TAB PO SCH (09:14)
[2017-02-11] MEDS ORDERED: METOPROLOL 25 MG TAB PO SCH (09:30)
--- NOTE | 2017-02-11 09:30 | PDOCDIS ---
Discharge Instructions DIAGNOSIS Discharge Diagnosis E. coli UTI with sepsis; diabetes mellitus type 2; anemia; chronic kidney disease stage II; peripheral vascular disease; essential hypertension; hyperlipidemia CONDITION Patient Condition: Fair HOME CARE INSTRUCTIONS: Special Diet: carb controlled ACTIVITY: Activity Restrictions: Slowly Increase Activity Do not Drive Do not operate Machinery Do not operate Power Tool FOLLOW UP/APPOINTMENTS Follow-up Plan Primary physician in 2 weeks. MORRO Quiros MD Feb 11, 2017 09:30
[2017-02-11] MEDS ORDERED: FURO40TA4 PO (09:32)
[2017-02-11] MEDS ORDERED: DOXA2TAB61 PO (09:32)
[2017-02-11] MEDS ORDERED: CEPH500C PO (09:39)
--- NOTE | 2017-02-11 09:41 | DS ---
Date/Time of Note Date/Time of Note DATE: 02/11/17 TIME: 09:33 Discharge Summary Admission/Discharge Info Admit Date/Time Feb 06, 2017 at 20:13 Discharge Date/Time 02/11/2017 Discharge Diagnosis E. coli UTI with sepsis; diabetes mellitus type 2; anemia; chronic kidney disease stage II; peripheral vascular disease; essential hypertension; hyperlipidemia Patient Condition: Fair Procedures CT scan abdomen and pelvis; transfusion 2 units of blood. IV antibiotics. Hx of Present Illness The patient is an 81-year-old female with a history of hypertension, dyslipidemia, diabetes, CKD as well as left foot amputation. The patient presents with fever, vomiting, decreased appetite, not drinking fluids for a day , vomiting only occurred today. History is obtained from daughter. According to granddaughter, the patient has no history of dementia. The patient is not very conversational. The patient denies any dysuria, any urinary frequency. In the ED, the patient's UA was positive for UTI. PAST MEDICAL HISTORY: As per HPI. MEDICATIONS: 1. Aldactone 2. Metoprolol. 3. Imdur. 4. Aspirin. 5. Simvastatin. 6. Furosemide. 7. Allopurinol. 8. Nifedipine. Hospital Course 81-year-old female admitted with E. coli urosepsis with septic shock. She required careful aggressive intervention with IV antibiotics and improving nicely. In addition to this she had acute renal insufficiency above and beyond her baseline status. Her renal function has resolved back to her chronic kidney disease stage II level. She did have anemia that required transfusion. She is now improved. Please note that her antibiotics were changed specifically the nifedipine was replaced due to his fluid retention characteristics and that allowed us to decrease her diuretic therapy. Her blood sugar control is excellent. She is now stable for discharge in improved condition as compared to the time of admission she has no known communicable diseases she is not hazard to herself or others her rehabilitation potential is fair. She will follow-up with her primary physician Dr. Carlo Bill in 2 weeks Home Meds Active Scripts Furosemide* (Furosemide*) 40 Mg Tablet, 80 MG PO QAM@06 for 30 Days, TAB 1 every morning for fluid retention. This is a reduction in dose Prov:MORRO RAMÍREZ MD 02/11/17 Doxazosin Mesylate* (Cardura*) 2 Mg Tablet, 2 MG PO HS for 30 Days, TAB 1 Refill 1 at bedtime for blood pressure control; replaces nifedipine Prov:MORRO RAMÍREZ MD 02/11/17 Reported Medications Spironolactone* (Aldactone*) 25 Mg Tablet, 25 MG PO BID, #60 TAB 02/06/17 Metoprolol Tartrate* (Lopressor*) 25 Mg Tab, 25 MG PO BID, #60 TAB 02/06/17 Irbesartan* (Irbesartan*) 300 Mg Tablet, 300 MG PO DAILY, TAB 02/06/17 Isosorbide Mononitrate* (Isosorbide Mononitrate*) 30 Mg Tab.er.24h, 30 MG PO DAILY, TAB 02/06/17 Aspirin* (Aspirin* EC) 81 Mg Tablet.dr, 81 MG PO DAILY, TAB 02/06/17 Simvastatin* (Zocor*) 40 Mg Tablet, 40 MG PO QHS, #30 TAB 02/06/17 Furosemide* (Furosemide*) 80 Mg Tablet, 80 MG PO BID, #60 TAB 02/06/17 Allopurinol* (Allopurinol*) 100 Mg Tablet, 100 MG PO DAILY, TAB 02/06/17 Nifedipine* (Nifedipine ER*) 60 Mg Tablet.sa, 60 MG PO DAILY, TAB.SA 02/06/17 Discontinued Reported Medications Simvastatin (Simvastatin) 20 Mg Tablet 02/27/10 Benazepril Hcl* (Benazepril Hcl*) 20 Mg Tablet 02/27/10 Glyburide* (Glyburide*) 5 Mg Tablet 02/27/10 Glipizide* (Glipizide*) 5 Mg Tablet 02/27/10 Amlodipine Besylate* (Norvasc*) 10 Mg Tablet 02/27/10 Metformin* (Glucophage*) 500 Mg Tab 10/27/09 Clopidogrel Bisulfate (Plavix) 75 Mg Tablet 10/27/09 Metoprolol Succinate* (Toprol XL*) 100 Mg Tab.sr.24h 10/27/09 Clonidine Hcl (Clonidine Hcl) 0.1 Mg Tablet 10/27/09 Valsartan-Hydrochlorothiazide (Diovan HCT) 1 Tab Tablet 10/27/09 Primary Care Provider Vijay Bill MD Time spent on discharge: > 30 minutes Pending Labs Laboratory Tests Test 02/10/17 12:13 02/10/17 17:15 02/10/17 21:16 02/11/17 04:45 Bedside Glucose 161mg/dL (70-220) 136mg/dL (70-220) 237mg/dL (70-220) White Blood Count 9.210^3/ul (4.8-10.8) Red Blood Count 3.7010^6/ul (4.20-5.40) Hemoglobin 10.9g/dl (12.0-16.0) Hematocrit 33.4% (37.0-47.0) Mean Corpuscular Volume 90.3fl (82.0-101.0) Mean Corpuscular Hemoglobin 29.5pg (29.0-33.0) Mean Corpuscular Hemoglobin Concent 32.6g/dl (32.0-37.0) Red Cell Distribution Width 13.9% (11.5-14.5) Platelet Count 41906^3/UL (140-415) Mean Platelet Volume 11.5fl (7.4-10.4) Neutrophils % 75.1% (39.0-77.0) Lymphocytes % 13.0% (15.0-51.0) Monocytes % 7.1% (0.0-11.0) Eosinophils % 3.2% (0.0-7.0) Basophils % 0.4% (0.0-2.0) Nucleated Red Blood Cells % 0.0/100WBC (0.0-0.0) Neutrophils # 6.910^3/ul (1.6-7.5) Lymphocytes # 1.210^3/ul (0.8-2.9) Monocytes # 0.710^3/ul (0.3-0.9) Eosinophils # 0.310^3/ul (0.0-0.5) Basophils # 0.010^3/ul (0.0-0.1) Nucleated Red Blood Cells # 0.010^3/ul (0.0-0.0) Test 02/11/17 05:10 02/11/17 06:29 02/11/17 08:47 Sodium Level 141mmol/L (135-144) Potassium Level 4.3mmol/L (3.5-5.1) Chloride Level 117mmol/L (97-110) Carbon Dioxide Level 17mmol/L (21-31) Anion Gap 11 (8-16) Blood Urea Nitrogen 25mg/dl (7-20) Creatinine 1.61mg/dl (0.44-1.00) Glucose Level 90mg/dl (70-220) Calcium Level 8.0mg/dl (8.4-10.2) Lab Scanned Report BLOOD [id number] Bedside Glucose 82mg/dL (70-220) Copies To: CC: VIJAY BILL MD, JOSHUA A MD Feb 11, 2017 09:41
[2017-02-11] MEDS ORDERED: DOXAZOSIN 1 MG TAB PO ONE (10:00)
[2017-02-11 13:15] VITALS: BP 149/78; PULSE 62; RESP 18
[2017-02-11] MEDS ORDERED: DOXAZOSIN 2 MG TAB PO SCH (21:00)
== END 2017-02-11 13:24 | disposition home health service (06) | DRG 871 ==
LOC: E/R 16:40 → PP2 20:13
PROVIDERS: ADMIT Internal Medicine; ATTEND Internal Medicine
PROC: 30233N1 Transfusion of Nonautologous Red Blood Cells into Peripheral Vein, Percutaneous Approach (ICD-10-PCS; principal; 2017-02-10)
DX: A41.51 Sepsis due to Escherichia coli [E. coli] (principal); G93.40 Encephalopathy, unspecified; R65.21 Severe sepsis with septic shock; N17.9 Acute kidney failure, unspecified; N39.0 Urinary tract infection, site not specified; E87.1 Hypo-osmolality and hyponatremia; E11.22 Type 2 diabetes mellitus with diabetic chronic kidney disease; E86.0 Dehydration; D64.9 Anemia, unspecified; I73.9 Peripheral vascular disease, unspecified; I12.9 Hypertensive chronic kidney disease with stage 1 through stage 4 chronic kidney disease, or unspecified chronic kidney disease; N18.2 Chronic kidney disease, stage 2 (mild); E78.5 Hyperlipidemia, unspecified; R11.2 Nausea with vomiting, unspecified; E79.0 Hyperuricemia without signs of inflammatory arthritis and tophaceous disease; Z79.4 Long term (current) use of insulin; Z79.82 Long term (current) use of aspirin; Z89.432 Acquired absence of left foot; Z79.02 Long term (current) use of antithrombotics/antiplatelets
CPT/HCPCS: 36415; 36430; 71010; 74176; 80048; 80053; 81001; 82105; 82962; 83036; 83605; 83735; 84484; 85025; 85610; 85730; 86644; 86850; 86900; 86901; 86920; 87040; 87086; 93005; 96374; 97163; J0360; J0696; J1815; J2270; J7030; J7040; J7120; P9016; P9612